=== PATIENT | female | born 1990 | race Caucasian/White ===

== ENCOUNTER → 2017-01-05 | Outpatient (CLI) | payer OTHER ==
--- NOTE | 2017-01-05 10:32 | REP ---
Clinical: Pelvic pain. Technique: Transabdominal pelvic ultrasound with color Doppler evaluation of the ovaries. Findings: Bladder is unremarkable and measures 9.0 x 2.9 x 5.6 cm. Anteverted uterus measures 8.5 x 4.8 x 7.6 cm. Endometrial complex is thickened to 13.4 mm and consistent with menstrual cycle. No discrete uterine or endometrial abnormalities are identified. The bilateral ovaries are normal in appearance and vascularity without torsion. Right ovary measures 2.5 x 2.4 x 4.5 cm; RI 0.61. Left ovary measures 3.6 x 1.8 x 4.9 cm; RI 0.73. No pelvic fluid or adnexal mass lesion. Impression: Normal pelvic ultrasound. Signed by Jaspal Huang MD 01/05/2017 10:24 A
== END ==
LOC: M RAD 09:20
PROVIDERS: ATTEND Nurse Practitioner Women's Health
DX: R10.30 Lower abdominal pain, unspecified (principal)

== ENCOUNTER → 2019-09-11 | Outpatient (CLI) | payer OTHER ==
[2019-09-11 12:00] LABS: BASO % 0.7 % (0.0-1.0); EOS # 0.6 10^3/uL (0.0-0.5); EOS % 10.8 % (0.0-3.0); HEMATOCRIT 44.3 % (36.0-47.0); HEMOGLOBIN 14.5 g/dl (12.0-15.5); LYMPH # 1.8 10^3/uL (1.5-5.0); LYMPH % 34.2 % (24.0-44.0); MEAN CORPUSCULAR HEMOGLOBIN 29.7 pg (27.0-33.0); MEAN CORPUSCULAR HGB CONC 32.7 g/dl (32.0-36.5); MEAN CORPUSCULAR VOLUME 90.8 fl (80.0-96.0); MONO # 0.3 10^3/uL (0.0-0.8); MONO % 5.2 % (0.0-5.0); NEUTROPHILS # 2.6 10^3/uL (1.5-8.5); NEUTROPHILS % 48.9 % (36.0-66.0); PLATELET COUNT, AUTOMATED 231 10^3/uL (150-450); RED BLOOD COUNT 4.88 10^6/uL (4.00-5.40); WHITE BLOOD COUNT 5.4 10^3/uL (4.0-10.0)
[2019-09-11 12:31] LABS: ALT/SGPT 26 U/L (12-78); BILIRUBIN,TOTAL 0.6 MG/DL (0.2-1.0); BLOOD UREA NITROGEN 11 MG/DL (7-18); CARBON DIOXIDE LEVEL 29 MEQ/L (21-32); CHLORIDE LEVEL 106 MEQ/L (98-107); CREATININE FOR GFR 0.73 MG/DL (0.55-1.30); FOLATE > 24.0 NG/ML; FREE T4 0.97 NG/DL (0.76-1.46); GLOMERULAR FILTRATION RATE > 60.0 (>60); GLUCOSE, FASTING 80 MG/DL (70-100); POTASSIUM SERUM 4.3 MEQ/L (3.5-5.1); RHEUMATOID FACTOR QUANT < 10.0 IU/ML (<15.0); SODIUM LEVEL 141 MEQ/L (136-145); TOTAL PROTEIN 7.3 GM/DL (6.4-8.2); VITAMIN B12 LEVEL 668 PG/ML
[2019-09-16 23:07] LABS: ANTI DOUBLE STRAND-DNA AB 2 IU/mL (0-9); ANTINUCLEAR ANTIBODIES DIRECT Positive (Negative); CYCLIC CITRULLINATED PEPTIDE 9 units (0-19); RNP ANTIBODIES 1.2 AI (0.0-0.9); SJOGREN'S ANTI SS-A <0.2 AI (0.0-0.9); SJOGREN'S ANTI SS-B <0.2 AI (0.0-0.9); SMITH ANTIBODIES <0.2 AI (0.0-0.9)
== END ==
LOC: M LRY 09:37
PROVIDERS: ATTEND Physician Assistant
DX: F45.8 Other somatoform disorders (principal); A69.20 Lyme disease, unspecified; M25.50 Pain in unspecified joint

== ENCOUNTER → 2019-09-30 | Outpatient (CLI) | payer OTHER ==
[2019-10-01 15:07] LABS: ANTI DOUBLE STRAND-DNA AB 1 IU/mL (0-9); ANTINUCLEAR ANTIBODIES DIRECT Positive (Negative); SJOGREN'S ANTI SS-A <0.2 AI (0.0-0.9); SJOGREN'S ANTI SS-B <0.2 AI (0.0-0.9); SMITH ANTIBODIES <0.2 AI (0.0-0.9)
== END ==
LOC: M LRY 10:26
PROVIDERS: ATTEND Physician Assistant
DX: R74.8 Abnormal levels of other serum enzymes (principal)

== ENCOUNTER → 2019-12-03 | Outpatient (REF) | payer OTHER ==
[2020-01-04 11:41] LABS: ANA (HEP2) SEE SEPARATE REPORT
[2020-01-04 11:43] LABS: SMITHS ANTIBODY SEE SEPARATE REPORT UNITS
[2020-01-04 11:44] LABS: RNP ANTIBODY SEE SEPARATE REPORT UNITS
== END ==
LOC: M SFHCRHEU 16:46
PROVIDERS: ATTEND Internal Medicine Rheumatology
DX: M25.50 Pain in unspecified joint (principal)

== ENCOUNTER → 2020-01-23 | Outpatient (REF) | payer OTHER | LOC: M WUC 16:10 | PROVIDERS: ATTEND Physician Assistant | DX: R30.0 Dysuria (principal) ==

== ENCOUNTER → 2020-11-16 | Outpatient (REF) | payer OTHER | LOC: M LAB REF 08:56 | PROVIDERS: ATTEND Physician Assistant | DX: L57.0 Actinic keratosis (principal) ==

== ENCOUNTER → 2020-12-02 | Outpatient (CLI) | payer OTHER ==
[2020-12-02 10:11] LABS: CHOLESTEROL RISK RATIO 3.727 (<5); FREE T4 1.08 NG/DL (0.76-1.46); MAGNESIUM LEVEL 2.1 MG/DL (1.8-2.4); THYROID STIMULATING HORMONE 1.01 uIU/ML (0.358-3.740)
[2020-12-02 10:39] LABS: FOLATE 21.7 NG/ML
== END ==
LOC: M LAB 08:54
PROVIDERS: ATTEND Physician Assistant
DX: F45.8 Other somatoform disorders (principal); E78.2 Mixed hyperlipidemia

== ENCOUNTER → 2021-03-30 | Outpatient (REF) | payer OTHER | LOC: M LAB REF 16:56 | PROVIDERS: ATTEND Family Medicine | DX: N39.0 Urinary tract infection, site not specified (principal) ==

== ENCOUNTER → 2021-04-06 | Outpatient (CLI) | payer OTHER ==
--- NOTE | 2021-04-06 13:12 | REP ---
INDICATION: PELVIC PAIN COMPARISON: 01/05/2017 TECHNIQUE: Transabdominal pelvic ultrasound with color Doppler evaluation of the ovaries. FINDINGS: Bladder is unremarkable and measures approximately 10.7 x 4.5 x 10.0 cm. Normal anteverted uterus measures 9.6 x 4.3 x 6.9 cm. The endometrial complex measures 10.6 mm thickness. No discrete uterine or endometrial abnormalities are appreciated. Bilateral ovaries are normal in appearance and vascularity without evidence for torsion. Right ovary measures 3.0 x 1.8 x 2.6 cm; R I = 0.56. Left ovary measures 3.3 x 1.7 x 2.7 cm; R I = 0.51. No pelvic fluid or adnexal mass lesion IMPRESSION: Normal pelvic ultrasound. <Electronically signed by Jaspal Huang > 04/06/21 [id number]
== END ==
LOC: M RAD 12:31
PROVIDERS: ATTEND Family Medicine
DX: R10.2 Pelvic and perineal pain (principal)

== ENCOUNTER → 2021-04-22 | Outpatient (CLI) | payer OTHER ==
[2021-04-22 10:52] LABS: BASO % 0.7 % (0.0-1.0); EOS # 0.5 10^3/uL (0.0-0.5); EOS % 9.9 % (0.0-3.0); HEMATOCRIT 43.7 % (36.0-47.0); HEMOGLOBIN 14.4 g/dl (12.0-15.5); LYMPH % 37.7 % (24.0-44.0); MEAN CORPUSCULAR HEMOGLOBIN 29.9 pg (27.0-33.0); MEAN CORPUSCULAR VOLUME 90.7 fl (80.0-96.0); MONO # 0.3 10^3/uL (0.0-0.8); MONO % 5.4 % (2.0-8.0); NEUTROPHILS # 2.5 10^3/uL (1.5-8.5); NEUTROPHILS % 46.1 % (36.0-66.0); PLATELET COUNT, AUTOMATED 216 10^3/uL (150-450); RED BLOOD COUNT 4.82 10^6/uL (4.00-5.40); WHITE BLOOD COUNT 5.4 10^3/uL (4.0-10.0)
[2021-04-22 11:23] LABS: ALBUMIN 3.9 GM/DL (3.2-5.2); ALT/SGPT 115 U/L (12-78); AMYLASE 52 U/L (25-115); BILIRUBIN,TOTAL 0.3 MG/DL (0.2-1.0); BLOOD UREA NITROGEN 10 MG/DL (7-18); CARBON DIOXIDE LEVEL 29 MEQ/L (21-32); CHLORIDE LEVEL 110 MEQ/L (98-107); CREATININE FOR GFR 0.81 MG/DL (0.55-1.30); GLOMERULAR FILTRATION RATE > 60.0 (>60); GLUCOSE, FASTING 101 MG/DL (70-100); LIPASE 196 U/L (73-393); POTASSIUM SERUM 3.8 MEQ/L (3.5-5.1); SODIUM LEVEL 145 MEQ/L (136-145); TOTAL PROTEIN 7.4 GM/DL (6.4-8.2)
== END ==
LOC: M LAB 10:33
PROVIDERS: ATTEND Family Medicine
DX: R10.30 Lower abdominal pain, unspecified (principal)

== ENCOUNTER → 2021-04-25 | Outpatient (CLI) | payer OTHER ==
[~2021-04-25] MED LIST: GASTROGRAFIN SOLUTION 30ML (Q9963) As Ordered ONE; ISOVUE-370 76% 100ML VIAL As Ordered ONE
--- NOTE | 2021-04-25 19:50 | REP ---
INDICATION: LOWER ABD PAIN. COMPARISON: None TECHNIQUE: Axial contrast-enhanced images from the lung bases to the pubic symphysis using oral and 100 cc Isovue 370 intravenous contrast material. Coronal and sagittal reformations obtained. This CT examination was performed using the following dose reduction techniques: Automated exposure control, adjustment of mA and/or kv according to the patient's size, and the use of iterative reconstruction technique. FINDINGS: Liver, spleen, pancreas, bilateral adrenal glands and kidneys are normal. The enteric system including stomach, small, and large bowel appears normal. No evidence for obstruction or acute inflammatory process. Normal terminal ileum and appendix are identified in the right lower quadrant. Pelvis demonstrates normal bladder and age-appropriate uterus/adnexa. No ascites. No free air. No intraperitoneal or retroperitoneal adenopathy. Abdominal aorta and vasculature appear normal. Musculoskeletal structures are intact and without acute osseous abnormality. IMPRESSION: No acute abdominopelvic pathology appreciated. <Electronically signed by Jaspal Huang > 04/25/211945
== END ==
LOC: M RAD 09:20
PROVIDERS: ATTEND Family Medicine
DX: R10.30 Lower abdominal pain, unspecified (principal)

== ENCOUNTER → 2021-05-23 | Outpatient (CLI) | payer OTHER ==
[2021-05-23 11:23] LABS: C REACTIVE PROTEIN QUANTITATIV < 0.30 MG/DL (0.00-0.30)
[2021-05-23 11:38] LABS: HEMOGLOBIN A1c 4.9 %
[2021-05-23 12:43] LABS: VITAMIN B12 LEVEL 888 PG/ML (247-911)
[2021-05-23 12:44] LABS: FOLATE 17.6 NG/ML (>5.4)
[2021-05-25 09:06] LABS: ALBUMIN 4.33 GM/DL (3.29-5.55); ALBUMIN % 61.8 % (55.8-66.1); ALPHA-1-GLOBULIN % 3.6 % (2.9-4.9); ALPHA-1-GLOBULINS 0.25 GM/DL (0.17-0.41); ALPHA-2-GLOBULINS 0.64 GM/DL (0.42-0.99); ALPHA-2-GLOBULINS % 9.2 % (7.1-11.8); BETA-1-GLOBULINS % 7.1 % (4.7-7.2); BETA-2-GLOBULINS 0.32 GM/DL (0.19-0.55); BETA-2-GLOBULINS % 4.5 % (3.2-6.5); GAMMA GLOBULIN % 13.8 % (11.1-18.8); GAMMA GLOBULINS 0.97 GM/DL (0.65-1.58)
[2021-06-01 19:07] LABS: ARSENIC BLOOD 1 ug/L (2-23); LEAD BLOOD <1 ug/dL (0-4); MERCURY BLOOD 2.2 ug/L (0.0-14.9); Methylmalonic Acid 151 nmol/L (0-378); VITAMIN B6,PYRIDOXAL PHOSPHATE 9.2 ug/L (2.0-32.8)
== END ==
LOC: M LAB 09:56
PROVIDERS: ATTEND Psychiatry & Neurology Neurology
DX: G62.9 Polyneuropathy, unspecified (principal)